=== PATIENT | male | born 1985 | race Caucasian/White ===

== ENCOUNTER 2017-05-10 22:18 | Emergency (ER) | payer MEDICAID ==
[~2017-05-10] VITALS: Ht 188 cm; Wt 77.1 kg
--- NOTE | 2017-05-10 22:57 | NUR ---
Patient discharged to home in stable conditon. Written and verbal after care instructions given. Patient verbalizes understanding of instructions.
[2017-05-10] MEDS ORDERED: OLANZAPINE 5 MG TABLET PO ONE (23:00)
[2017-05-10] MEDS ORDERED: OLANZAPINE 5 MG TABLET ONE (23:10)
== END 2017-05-10 22:58 | disposition home or self-care (01) ==
LOC: ER 22:23
DX: F39 Unspecified mood [affective] disorder (principal); F17.200 Nicotine dependence, unspecified, uncomplicated
CPT/HCPCS: 99284; A4663